=== PATIENT | male | born 1970 | race Caucasian/White ===

== ENCOUNTER 2019-06-10 10:05 | Day surgery (SDC) | payer BC ==
[2019-06-10] MEDS ORDERED: LIDOCAINE 2% MDV (20MG/ML) 20ML VIAL IV ONE (10:06)
[2019-06-10] MEDS ORDERED: PROPOFOL 10 MG/ML VIAL IV ONE (10:06)
--- NOTE | 2019-06-11 17:20 | Operative Note ---
DATE: 06/10/2019 OPERATION: COLONOSCOPY with cold forceps and cold snare polypectomy. PREOPERATIVE DIAGNOSIS: Colon cancer screening, initial exam, average risk. POSTOPERATIVE DIAGNOSIS: Colon polyps. PREPARATION QUALITY: Excellent. ESTIMATED BLOOD LOSS: Minimum. SPECIMENS: Transverse colon polyp and sigmoid polyp. PROCEDURE: After informed consent was obtained from the patient, he was placed in the left lateral decubitus position in the endoscopy suite, sedated and monitored by the department of anesthesia. Digital rectal examination was unremarkable. A well-lubricated [id number] colonoscope was inserted into the rectum and advanced through a tortuous and redundant colon to the level of the cecum. Transabdominal pressure was required for cecal intubation. The cecum, cecal bulb, and ascending colon were unremarkable. In the transverse colon there was a diminutive polyp removed in piecemeal fashion with a cold forceps. The remainder of the transverse colon and descending were unremarkable. In the sigmoid colon, there was a semi-pedunculated polyp approximately 5-6 mm removed with a cold snare. Minimal bleeding was noted. The remainder of the sigmoid colon and rectum were unremarkable. The endoscope was retracted in the rectum. Again forward and J-turn views of the rectum and anorectum were unrevealing. The endoscope was straightened, the rectal ampulla deflated, and the endoscope was removed. RECOMMENDATIONS: The patient should resume his medications and diet. He will require repeat exam in 3-5 years pending tissue histology. As always, thank you for allowing me to participate in the healthcare of your patients. MARCUS
== END 2019-06-10 12:15 | disposition home or self-care (01) ==
LOC: HOP 10:05
PROVIDERS: ATTEND Internal Medicine Gastroenterology
DX: Z12.11 Encounter for screening for malignant neoplasm of colon (principal); D12.3 Benign neoplasm of transverse colon; D12.5 Benign neoplasm of sigmoid colon; I10 Essential (primary) hypertension

== ENCOUNTER 2019-06-21 17:03 | Emergency (ER) | payer BC | END 2019-06-21 19:02 | disposition left against medical advice (07) | LOC: ER 17:03 | DX: Z53.20 Procedure and treatment not carried out because of patient's decision for unspecified reasons (principal) ==